=== PATIENT | male | born 1970 | race Caucasian/White ===

== ENCOUNTER 2019-12-23 08:46 | Outpatient (CLI) | payer MEDICARE, MEDICAID, SELFPAY ==
--- NOTE | ~2019-12-23 | CT_ITS ---
EXAMINATION: CT abdomen pelvis w con DATE: 12/23/2019 09:33 INDICATION: Abdominal pain. Paraplegia. TECHNIQUE: Computed tomography (CT) of the abdomen and pelvis was performed with 100 cc Omnipaque 350 intravenous contrast. Automated exposure control and iterative reconstruction technique were employe d. Exam dose: 626.44 mGy-cm total exam DLP. COMPARISON: 03/13/2017 limited abdominal ultrasound 09/19/2016 CT abdomen pelvis FINDINGS: Prominent band of discoid atelectasis or scarring at the left lung base, left lower lobe. N o consolidation at the lung bases. No pericardial or pleural effusion. Diffuse hepatic steatosis. No hepatic, splenic, pancreatic, adrenal or renal space-occupying mass les ion is detected. The gallbladder is present. No gallbladder wall thickening or pericholecystic fluid or inflammation. No bile duct or pancreatic duct dilatation. No renal space occupying mass lesion. No urinary tract calculus or hydroureteronephrosis. There is diffuse bladder wall thickening. There is abdominal aortic calcification; no evidence of aneurysm. No intraperitoneal or retroperiton eal or pelvic mass lesion or lymphadenopathy. Normal appendix. No bowel wall thickening or bowel obstruction, pneumatosis or intraperitoneal free a ir. A battery pack along the subcutaneous tissues of the right anterior abdominal wall lead extending int o the lower thoracic spinal canal. Degenerative spurring throughout the thoracic and lumbar spine. IMPRESSION: Hepatic steatosis Normal appendix Reviewed, dictated and finalized at [facility]. Reviewed, dictated and finalized at [facility].
== END 2019-12-23 08:47 | disposition home or self-care (01) ==
LOC: ANHIMG 08:53
PROVIDERS: PCP Family Medicine; Visit Provider Family Medicine
DX: G82.20 Paraplegia, unspecified (principal); R10.9 Unspecified abdominal pain; K76.0 Fatty (change of) liver, not elsewhere classified
CPT/HCPCS: 74177; Q9967

== ENCOUNTER 2020-01-12 13:57 | Emergency (ER) | payer MEDICARE, MEDICAID, SELFPAY ==
[2020-01-12 14:03] VITALS: BP 245/100; PULSE 139; RESP 18; TEMP 36.8; O2SAT 99
[2020-01-12 14:31] LABS: Add Urine Microscopic? YES; Appearance Urine Clear (Clear); Bacteria Urine Trace /hpf; Bilirubin Urine Negative (Negative); Blood Urine Negative (Negative); Color Urine Yellow (Yellow); Glucose Urine UA Negative (Negative); Ketones Urine 1+ mg/dL (Negative); Leukocyte Esterase Ur 1+ LEU/UL (Negative); Nitrate Urine Negative (Negative); Protein Urine Negative (Negative); RBC Urine 0-2 /hpf (0-2); Specific Grav Ur 1.009 (1.001-1.035); Squamous Epithelial Cell Urine Rare /hpf (Few); Transitional Epi Cells Urine Rare /hpf (None Seen); Urobilinogen Urine Negative mg/dL (<2.0); WBC Urine 21-30 /hpf
[2020-01-12 15:36] VITALS: O2SAT 97
--- NOTE | 2020-01-12 15:46 | ECG_ITS ---
Measurements Intervals [place] Rate: 89 P: 74 MD: 119 QRS: 16 QRSD: 85 T: 58 QT: 346 QTc: 423 Interpretive Statements SINUS RHYTHM WITH SHORT MD INTERVAL BASELINE ARTIFACT- I, II, III, AVR, AVL, AVF, V1-V4, V6 BORDERLINE ECG Electronically Signed On 01-12-2020 18:53:12 PAPER CORE MACHINE OPERATOR by Alfred Ellsworth D.O.
[2020-01-12 16:00] VITALS: O2SAT 95
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
[2020-01-12 16:16] LABS: Basophils Absolute Auto 0.1 K/mm3 (0.0-0.1); Basophils Percent Auto 0.4 % (0.2-1.2); Eosinophils Percent Auto 0.3 % (0-4.4); Hematocrit 37.4 % (42.0-52.0); Hemoglobin 12.6 g/dL (14.0-18.0); Immature Granulocyte Absolute 0.05 K/mm3 (0.00-0.031); Immature Granulocyte Percent A 0.4 % (0-0.5); Lymphocytes Absolute Auto 1.57 K/mm3 (0.9-3.2); Lymphocytes Percent Auto 11.5 % (18.3-44.2); Mean Corpuscular HGB Conc 33.7 g/dl (32-36); Mean Corpuscular Hemoglobin 31.2 pg (26-34); Mean Corpuscular Volume 92.6 fl (80-100); Monocytes Absolute Auto 1.1 K/mm3 (0.1-0.6); Monocytes Percent Auto 8.2 % (2.6-8.5); Neutrophils Absolute Auto 10.8 K/mm3 (1.3-6.7); Neutrophils Percent Auto 79.2 % (45.5-73.1); Platelet Count Result 189 k/mm3 (150-375); Red Blood Count 4.04 M/mm3 (4.6-6.20); Red Cell Distribution Width 13.2 % (11.5-14.5); White Blood Count 13.6 K/mm3 (4.5-10.0)
[2020-01-12 16:22] VITALS: O2SAT 97
[2020-01-12 16:28] LABS: Alanine Aminotransferase 33 U/L (4-50); Albumin Level 4.3 g/dL (3.5-5.1); Alkaline Phosphatase 133 U/L (38-126); Anion Gap 7 mmol/L (8-16); Aspartate Amino Transferase 41 U/L (17-59); Bilirubin,Total 0.8 mg/dL (0.2-1.3); Blood Urea Nitrogen 14 mg/dL (9-20); Calcium 9.6 mg/dL (8.4-10.2); Carbon Dioxide 29 mmol/L (22-30); Chloride 104 mmol/L (98-107); Estimated CRCL calculation 114 ml/min; Estimated Glomerular Filt Rate > 60; Glucose 88 mg/dL (75-110); Potassium 4.2 mmol/L (3.4-5.0); Sodium 140 mmol/L (137-145)
[2020-01-12 17:46] VITALS: BP 123/79; PULSE 89; RESP 16; O2SAT 100
--- NOTE | 2020-01-12 17:54 | PC.NURSE ---
WILBUR RAMEY INFORMED THAT PT RESULTS ARE BACK, GIVEN UPDATED VS, AND INFORMED THAT PT IS AWAITING HIM TO COME DOWN AND TALK ABOUT HIS RESULTS.
[2020-01-12 18:23] VITALS: BP 123/79; PULSE 82; RESP 17; O2SAT 98
== END 2020-01-12 18:24 | disposition home or self-care (01) ==
PROVIDERS: Emergency Provider Emergency Medicine; PCP Family Medicine
DX: M62.830 Muscle spasm of back (principal); N39.0 Urinary tract infection, site not specified; K21.9 Gastro-esophageal reflux disease without esophagitis; N31.9 Neuromuscular dysfunction of bladder, unspecified; S14.159S Other incomplete lesion at unspecified level of cervical spinal cord, sequela; V49.9XXS Car occupant (driver) (passenger) injured in unspecified traffic accident, sequela; R94.31 Abnormal electrocardiogram [ECG] [EKG]
CPT/HCPCS: 36415; 80053; 81001; 85025; 87086; 93005; 99283

== ENCOUNTER 2020-01-30 00:39 | Outpatient (CLI) | payer MEDICARE, MEDICAID, SELFPAY ==
[2020-01-30 19:13] LABS: SARS-CoV-2 RNA PCR Negative
== END 2020-01-30 00:40 | disposition home or self-care (01) ==
LOC: ANHCOVIDDT 00:39
PROVIDERS: PCP Family Medicine; Visit Provider Plastic Surgery
DX: Z01.818 Encounter for other preprocedural examination (principal); Z20.828 Contact with and (suspected) exposure to other viral communicable diseases
CPT/HCPCS: 87635; C9803; U0003

== ENCOUNTER 2020-02-03 01:13 | Day surgery (SDC) | payer MEDICARE, MEDICAID, SELFPAY ==
[2020-01-26 15:46] VITALS: BMI 22.1
--- NOTE | 2020-02-02 12:41 | WPDANESEPPF ---
Anes - Initial Pre Proc Eval Procedure: Operation Date: 02/03/20 12:15 Proposed Procedures p Incision and Drainage Perineal Sinus Tract - Demarcus Gonzales MD Date/Time: 02/02/20 12:41 Surgeon: Demarcus Gonzales MD Pre Op Diagnosis: Abscess Of Perineal Sinus Tract Patient Data Age: 49 Gender: M Height: 1.83 m Weight: 73.94 kg Allergies Allergy/AdvReac Type Severity Reaction Status Date / Time No Known Allergies Allergy Verified 01/26/20 15:41 Home Medications Medication Instructions Recorded Confirmed Type baclofen 50 mcg/mL (1 mL) 50 mcg I-THECAL DAILY 01/05/19 01/26/20 History intrathecal syringe ibuprofen 600 mg tablet 600 mg PO TID PRN #90 tablet 12/01/19 01/26/20 Rx nitrofurantoin monohyd/m-cryst 100 mg PO Q12H 5 Days #10 cap 01/12/20 01/26/20 Rx [Macrobid] pregabalin 200 mg capsule 200 mg PO BID #60 cap 01/17/20 01/26/20 Rx duloxetine 60 mg PO DAILY 01/26/20 01/26/20 History tolterodine 4 mg PO HS 01/26/20 01/26/20 History Patient hx anesthesia problems: none Family hx anesthesia problems: none PMFSH Past Medical History Medical History (Updated 02/02/20 @ 12:43 by Moisés Fam MD) Colon cancer screening negative cologuard Gastroesophageal reflux disease without esophagitis Neurogenic dysfunction of the urinary bladder Paraplegia following spinal cord injury C6 lesion Family History Family History Sibling Family history of cardiovascular disease Patient's brother is in good health Mother Cerebrovascular accident Family history of development disorder Patient's mother is in good health Father Patient's father is in good health Other Family history of malignant neoplasm Social History Social History Smoking status: Never smoker Second hand tobacco smoke exposure: No Alcohol intake: never Substance use: never Living arrangements: other Spiritual care concerns: No Anes - Eval Final PreProcedure Day of Procedure 02/02/20 12:41 Patient weight: normal Heart: regular rate and rhythm Lungs: clear to auscultation and normal air movement Airway: Mallampati scale class II Neurological: alert and oriented Last oral intake: >/= 8 hours ASA classification: III Emergent: no Anesthetic plan: proceed Anesthesia type and monitoring: general GIVS Informed Consent: The patient's anesthetic plan and its attendant risks and benefits were discussed with the patient/family/POA. Questions were solicited and answers provided to the satisfaction of the patient/family/POA.
--- NOTE | 2020-02-03 07:17 | WPDHPUPDATE1 ---
History and Physical Update Update Date/Time: 02/03/20 07:17 History and Physical has been reviewed, including an updated exam of the patient. There are NO changes in the patient's condition. Risks, benefits, and alternatives have been discussed and questions answered. Patient agrees to proceed with procedure.
[2020-02-03 13:22] VITALS: BP 120/71; PULSE 61; RESP 20; TEMP 36.2; O2SAT 98
[2020-02-03] MEDS: LACTATED RINGERS 1,000 ML 30 ML IV CONT (13:24)
[2020-02-03] MEDS: BACITRACIN OINTMENT 15 GM TUBE 1 APPLIC TOPICAL (15:29)
[2020-02-03] MEDS: LIDO 1%/EPINEPHRINE 1:100,000 20 ML VIAL 5 ML INFILTRATE (15:29)
[2020-02-03 16:05] VITALS: BP 86/57; PULSE 71; RESP 16; TEMP 36.4; O2SAT 100
--- NOTE | 2020-02-03 16:24 | PM.OP ---
Procedure Note - Brief Procedure Note - Brief Date of procedure: 02/04/20 Pre-op diagnosis: Abscess Of Perineal Sinus Tract Post-op diagnosis: same Procedure performed: Excision of two subcutaneous draining tracts. Simple closure total 8 cm. Anesthesia: GETA Surgeon: Demarcus Gonzales MD Drains: No Packing: No Pathology: none sent Complications: No immediate complications Condition: stable Disposition: PACU Findings: Cystic structures without pus.
--- NOTE | 2020-02-03 16:27 | PM.PROC ---
Procedure Note - Detailed Date of procedure: 02/04/20 Pre-op diagnosis: Abscess Of Perineal Sinus Tract Post-op diagnosis: same Procedure performed: The perineal site was marked on the patient while in the holding area. He was then taken to the operating room and placed supine on the operating table. He was given general endotracheal anesthesia and repositioned to the lithotomy position. The perineal region was prepped and draped in usual fashion. There was no erythema present and there is no obvious drainage today. We were able to identify a 1/2 mm sinus tract and probed that very gently with a lacrimal probe. This extended to exit from another point approximately 3 cm away. Was a small amount of material in that track that I believed to be sebum. This area was infiltrated with 1% lidocaine with epinephrine. The trach was marsupialized over the probe. The epithelial lining was identified in a portion of this. The site was carefully cauterized. A 2nd trac was identified closer to the right thigh. This was also probed with the lacrimal probe. in this case the trach was closer to 5 cm and did not exit from another site. This was also marsupialized with cautery. In this case a 1 x 1.5 cm cystic structure was identified lined with epithelium and impacted with dry sebum. No pus was identified. The site was cauterized to obliterate the cystic wall. This area also had been infiltrated with 1% lidocaine with epinephrine. No additional tracts were identified. The 2 sites were oversewn was interrupted 4-0 chromic suture for a total closure of 8 cm. Antibiotic ointment and ABD pad and a promise panty was applied. The patient was extubated removed to his gurney and transported to the recovery room in stable condition. Surgeon: Demarcus Gonzales MD
[2020-02-03 16:35] VITALS: BP 132/67; PULSE 72; RESP 16
== END 2020-02-03 17:08 | disposition home or self-care (01) ==
PROVIDERS: PCP Family Medicine; Visit Provider Plastic Surgery
PROC: (CPT 10061; principal; 2020-02-03 13:15)
DX: L02.215 Cutaneous abscess of perineum (principal); K21.9 Gastro-esophageal reflux disease without esophagitis; G82.20 Paraplegia, unspecified; N31.9 Neuromuscular dysfunction of bladder, unspecified
CPT/HCPCS: 10061; A9270; J2250; J2405; J2704; J7120

== ENCOUNTER 2020-05-09 14:45 | Outpatient (CLI) | payer MEDICARE, MEDICAID, SELFPAY | END 2020-05-09 14:46 | disposition home or self-care (01) | LOC: ANHCOVIDVC 14:45 | PROVIDERS: PCP Family Medicine | DX: Z23 Encounter for immunization (principal) | CPT/HCPCS: 0001A; 91300 ==

== ENCOUNTER 2020-05-30 14:49 | Outpatient (CLI) | payer MEDICARE, MEDICAID, SELFPAY | END 2020-05-30 14:50 | disposition home or self-care (01) | LOC: ANHCOVIDVC 14:49 | PROVIDERS: PCP Family Medicine | DX: Z23 Encounter for immunization (principal) | CPT/HCPCS: 0002A; 91300 ==

== ENCOUNTER 2022-04-30 12:03 | Outpatient (CLI) | payer MEDICARE, MEDICAID, SELFPAY ==
--- NOTE | ~2022-04-30 | XR_ITS ---
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 RESULT: Lines, tubes, and devices: Catheter projects over the right chest. Lungs and pleura: Senescent change. Left basilar scar/atelectasis. Cardiomediastinal silhouette: Stable. Other: No acute osseous or upper abdominal finding. IMPRESSION: No acute cardiopulmonary process. Reviewed, dictated and finalized at [facility]. TORIAL CLEANER
== END 2022-04-30 12:04 | disposition home or self-care (01) ==
PROVIDERS: PCP Family Medicine; Visit Provider Family Medicine
DX: R05.9 Cough, unspecified (principal)
CPT/HCPCS: 71046

== ENCOUNTER 2022-09-03 12:19 | Outpatient (CLI) | payer MEDICARE, MEDICAID, SELFPAY ==
--- NOTE | ~2022-09-03 | XR_ITS ---
AP view of the pelvis and AP and lateral views of the left hip Clinical history: Pain Findings: No acute fracture or dislocation is seen. Suggestion of chronic dysplasia of the left aceta bulum/hip. Probable mild degenerative change of both hips. Soft tissues are unremarkable. Impression: No acute fracture or dislocation. 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 Mild degenerative change. Reviewed, dictated and finalized at location . Impression: No acute fracture or dislocation. 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 Mild degenerative change.
== END 2022-09-03 12:20 | disposition home or self-care (01) ==
PROVIDERS: PCP Family Medicine; Visit Provider Family Medicine
DX: M25.552 Pain in left hip (principal)
CPT/HCPCS: 73502

== ENCOUNTER 2023-02-12 08:01 | Outpatient (CLI) | payer MEDICARE, MEDICAID, SELFPAY ==
--- NOTE | ~2023-02-12 | CT_ITS ---
CT of the Abdomen and Pelvis: Indication: Abdominal pain Technique: 2.5 mm axial scans were obtained through the abdomen and pelvis following intravenous adm inistration of 100 cc of Omnipaque 350. Dose reduction technique was used on this scan by utilizing a utomated exposure control and iterative reconstruction technique. The dose-length product (DLP) was 4 07.90 mGy-cm. COMPARISON: 12/23/2019 Findings: Scans through the lung bases are unremarkable. The liver, spleen, pancreas, gallbladder, adrenals and kidneys are within normal limits. There are at herosclerotic calcifications of the aorta. No lymphadenopathy. No bowel obstruction or bowel wall thickening. There is no evidence to suggest acute appendicitis. Images through the pelvis were performed. Urinary bladder wall thickening versus underdistention. No pelvic mass evident. No ascites. Impression: Possible cystitis versus underdistended urinary bladder. Correlate with urinalysis. Reviewed, dictated and finalized at [facility]. 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 Correlate with urinaly sis.
== END 2023-02-12 08:02 | disposition home or self-care (01) ==
LOC: ANHIMG 08:02
PROVIDERS: PCP Family Medicine; Visit Provider Physician Assistant
DX: R10.9 Unspecified abdominal pain (principal); R63.4 Abnormal weight loss
CPT/HCPCS: 74177; Q9967

== ENCOUNTER 2024-03-06 01:24 | Day surgery (SDC) | payer MEDICARE, MEDICAID, SELFPAY ==
[2024-02-17 13:21] VITALS: BMI 22.4
[2024-03-06 12:09] VITALS: BP 165/93; PULSE 92; RESP 18; TEMP 36.3; O2SAT 98
[2024-03-06] MEDS: LACTATED RINGERS 1,000 ML 150 ML IV CONT (12:21)
--- NOTE | 2024-03-06 12:53 | P.PNAN_ITS ---
Anes - Initial Pre Proc Eval Procedure: Operation Date: 03/06/24 13:30 Proposed Procedures p Colonoscopy - Rayray Kaufman MD Date/Time: 03/06/24 12:53 Surgeon: Rayray Kaufman MD Pre Op Diagnosis: fecal abnormalities Patient Data Age: 54 Gender: M Height: 1.83 m Weight: 74.5 kg Last Vital Signs Temp 97.3 F L 03/06/24 12:09 Pulse 92 03/06/24 12:09 Resp 18 03/06/24 12:09 BP 165/93 H 03/06/24 12:09 Pulse Ox 98 03/06/24 12:09 O2 Del Method Room Air 03/06/24 12:09 Allergies Allergy/AdvReac Type Severity Reaction Status Date / Time adhesive tape Allergy Rash Verified 02/17/24 13:15 sulfamethoxazole (From AdvReac Intermediate Nausea and Verified 02/17/24 13:15 Bactrim) Vomiting trimethoprim (From Bactrim) AdvReac Intermediate Nausea and Verified 02/17/24 13:15 Vomiting Home Medications ?Medication ?Instructions ?Recorded ?Confirmed ?Type baclofen 50 mcg/mL (1 mL) 50 mcg intrathecal DAILY 01/05/19 02/17/24 History intrathecal syringe (Gablofen) nystatin 100,000 unit/gram topical 1 applic topical BID #60 grams 06/28/22 03/06/24 Rx powder fluticasone propionate 50 See Rx Instructions .Route 04/30/23 02/17/24 Rx mcg/actuation nasal .COMPLEX #16 mL spray,suspension baclofen 20 mg tablet 20 mg PO QID #60 tabs 09/10/23 02/17/24 Rx pregabalin 200 mg capsule (Lyrica) 200 mg PO TID #60 caps 09/10/23 03/06/24 Rx sertraline 50 mg tablet 50 mg PO DAILY #90 tabs 11/25/23 03/06/24 Rx hydrocodone 10 mg-acetaminophen 1 tablet PO Q6H PRN pain #60 tabs 11/27/23 02/17/24 Rx 325 mg tablet tolterodine 4 mg capsule,extended 4 mg PO HS #90 caps 02/23/24 03/06/24 Rx release 24 hr rosuvastatin 5 mg tablet See Rx Instructions .Route 02/24/24 03/06/24 Rx .COMPLEX #90 tabs ibuprofen 600 mg tablet 600 mg PO TID PRN pain #90 tabs 03/05/24 03/06/24 Rx clonidine HCl 0.2 mg tablet 0.2 mg PO DAILY 03/06/24 03/06/24 History Patient hx anesthesia problems: none Family hx anesthesia problems: none Results Review: All pre-operative results and documents have been reviewed as part of the pre- operative evaluation. [facility] Past Medical History Medical History Acute low back pain without sciatica Allergic rhinitis Anemia At high risk for autonomic dysreflexia Autonomic dysreflexia Borderline hypothyroidism Bursitis of left elbow Cellulitis of right lower extremity Colon cancer screening negative cologuard Constipation Cough Current mild episode of major depressive disorder Cystitis Dizziness Edema of right lower extremity Encounter for screening for malignant neoplasm of prostate Esophageal reflux Excessive cerumen in right ear canal Foul smelling urine Gastroesophageal reflux disease without esophagitis Generalized abdominal pain Lower resp. tract infection Mixed hyperlipidemia Neurogenic dysfunction of the urinary bladder Other chronic pain Paraplegia following spinal cord injury C6 lesion Paraplegia following spinal cord injury Proteinuria Quadriplegia following spinal cord injury Quadriplegia, C5-C7 complete Recurrent UTI Right upper quadrant abdominal pain Strain of right trapezius muscle Toe infection Urinary symptom or sign Vitamin D deficiency Family History Family History Sibling Family history of cardiovascular disease Mother Cerebrovascular accident Family history of development disorder Father No problems noted. Sibling Cancer of appendix Cancer of stomach Other Family history of malignant neoplasm Social History Social History Smoking status: Current every day smoker Second hand tobacco smoke exposure: No Alcohol intake: never Substance use: current Substance use type: marijuana Other substance usage details: smokes marijuana Last use: 02/17/2024 Lack of Transportation: No Lack of Food: Never True Current Housing: I Have Housing Concerned About Future Housing: No Difficulty Paying Gas/Electric Bills: No Difficulty Paying for Meds: No Currently Unemployed: No Education: High School Diploma/GED Difficulty w/ Childcare or Family Care: No Living arrangements: alone Occupation/Education: unemployed Gender identity (if verbalized by the patient): Male Sexual Orientation (if Verbalized by the Patient): Straight or Heterosexual Spiritual care concerns: No Agree to blood products: Yes Anes - Eval Final PreProcedure Day of Procedure 03/06/24 12:53 Patient weight: normal Heart: regular rate and rhythm Lungs: clear to auscultation Airway: Mallampati scale class II Neurological: alert and oriented Last oral intake: >/= 8 hours ASA classification: IV Emergent: no Anesthetic plan: proceed Anesthesia type and monitoring: general GIVS and standard monitoring Results Review: All pre-operative results and documents have been reviewed as part of the pre- operative evaluation. Informed Consent: The patient's anesthetic plan and its attendant risks and benefits were discussed with the patient/family/POA. Questions were solicited and answers provided to the satisfaction of the patient/family/POA.
--- NOTE | 2024-03-06 12:53 | P.HP_ITS ---
History of Present Illness History of Present Illness Consent: Risks, benefits, and alternatives have been discussed and questions answered. Patient agrees to proceed with procedure. 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 tract infection Generalized abdominal pain Foul smelling urine Excessive cerumen in right ear canal Esophageal reflux Edema of right lower extremity Dizziness Cystitis Current mild episode of major depressive disorder Cough Constipation Cellulitis of right lower extremity Bursitis of left elbow Allergic rhinitis Acute low back pain without sciatica Borderline hypothyroidism Anemia Encounter for screening for malignant neoplasm of prostate Mixed hyperlipidemia Vitamin D deficiency Urinary symptom or sign Colon cancer screening negative cologuard Gastroesophageal reflux disease without esophagitis Neurogenic dysfunction of the urinary bladder Paraplegia following spinal cord injury C6 lesion Family History Family History Sibling Family history of cardiovascular disease Mother Cerebrovascular accident Family history of development disorder Father No problems noted. Sibling Cancer of appendix Cancer of stomach Other Family history of malignant neoplasm Social History Social History Smoking status: Current every day smoker Second hand tobacco smoke exposure: No Alcohol intake: never Substance use: current Substance use type: marijuana Other substance usage details: smokes marijuana Last use: 02/17/2024 Lack of Transportation: No Lack of Food: Never True Current Housing: I Have Housing Concerned About Future Housing: No Difficulty Paying Gas/Electric Bills: No Difficulty Paying for Meds: No Currently Unemployed: No Education: High School Diploma/GED Difficulty w/ Childcare or Family Care: No Living arrangements: alone Occupation/Education: unemployed Gender identity (if verbalized by the patient): Male Sexual Orientation (if Verbalized by the Patient): Straight or Heterosexual Spiritual care concerns: No Agree to blood products: Yes Meds Home Medications and Allergies Home Medications ?Medication ?Instructions ?Recorded ?Confirmed ?Type baclofen 50 mcg/mL (1 mL) 50 mcg intrathecal DAILY 01/05/19 02/17/24 History intrathecal syringe (Gablofen) nystatin 100,000 unit/gram topical 1 applic topical BID #60 grams 06/28/22 03/06/24 Rx powder fluticasone propionate 50 See Rx Instructions .Route 04/30/23 02/17/24 Rx mcg/actuation nasal .COMPLEX #16 mL spray,suspension baclofen 20 mg tablet 20 mg PO QID #60 tabs 09/10/23 02/17/24 Rx pregabalin 200 mg capsule (Lyrica) 200 mg PO TID #60 caps 09/10/23 03/06/24 Rx sertraline 50 mg tablet 50 mg PO DAILY #90 tabs 11/25/23 03/06/24 Rx hydrocodone 10 mg-acetaminophen 1 tablet PO Q6H PRN pain #60 tabs 11/27/23 1 04/19/23 Rx 325 mg tablet tolterodine 4 mg capsule,extended 4 mg PO HS #90 caps 02/23/24 03/06/24 Rx release 24 hr rosuvastatin 5 mg tablet See Rx Instructions .Route 02/24/24 03/06/24 Rx .COMPLEX #90 tabs ibuprofen 600 mg tablet 600 mg PO TID PRN pain #90 tabs 03/05/24 03/06/24 Rx clonidine HCl 0.2 mg tablet 0.2 mg PO DAILY 03/06/24 03/06/24 History Allergies Allergy/AdvReac Type Severity Reaction Status Date / Time adhesive tape Allergy Rash Verified 02/17/24 13:15 sulfamethoxazole (From AdvReac Intermediate Nausea and Verified 02/17/24 13:15 Bactrim) Vomiting trimethoprim (From Bactrim) AdvReac Intermediate Nausea and Verified 02/17/24 13:15 Vomiting Vital Signs Vital Signs - 24 hr 03/06/24 12:09 Temperature 97.3 F L Pulse Rate 92 Respiratory Rate 18 Blood Pressure 165/93 H Pulse Oximetry 98 Oxygen Delivery Room Air Exam Narrative: uses wheelchair Const: General: comfortable and no acute distress HENMT: Face/Nose/Sinus: Normal nares present Eyes: General: appearance normal, both eyes and all related structures Neck: Neck: no JVD Resp: Auscultation: clear to auscultation bilaterally Cardio: Rate: regular rate Rhythm: regular rhythm GI: Inspection: non-distended GI Palp: Yes Soft to palpation Skin: General skin exam: normal color Neuro: Speech: normal speech Psych: Mental Status: mental status grossly normal Assessment and Plan Assessment and plan (1) Positive colorectal cancer screening using Cologuard test: Code(s): R19.5 - Other fecal abnormalities Status: Acute Assessment and Plan: colonoscopy
[2024-03-06 13:14] VITALS: BP 78/48; PULSE 61; RESP 18; O2SAT 98
[2024-03-06 13:24] VITALS: BP 76/30; PULSE 61; RESP 22; O2SAT 99
[2024-03-06 13:34] VITALS: BP 92/58; PULSE 60; RESP 22; O2SAT 99
== END 2024-03-06 13:53 | disposition home or self-care (01) ==
PROVIDERS: PCP Family Medicine; Referring Provider Student in an Organized Health Care Education/Training Program; Visit Provider Internal Medicine Gastroenterology
PROC: 0DJD8ZZ Inspection of Lower Intestinal Tract, Via Natural or Artificial Opening Endoscopic (ICD-10-PCS; CPT 45378; principal; 2024-03-06 13:30)
DX: D12.3 Benign neoplasm of transverse colon (principal); K64.8 Other hemorrhoids; E03.9 Hypothyroidism, unspecified; D64.9 Anemia, unspecified; E78.2 Mixed hyperlipidemia; E55.9 Vitamin D deficiency, unspecified; K21.9 Gastro-esophageal reflux disease without esophagitis; G90.4 Autonomic dysreflexia; G82.53 Quadriplegia, C5-C7 complete; G89.29 Other chronic pain; N31.9 Neuromuscular dysfunction of bladder, unspecified; F17.210 Nicotine dependence, cigarettes, uncomplicated; F12.90 Cannabis use, unspecified, uncomplicated; Z79.891 Long term (current) use of opiate analgesic; Z79.1 Long term (current) use of non-steroidal anti-inflammatories (NSAID); Z80.0 Family history of malignant neoplasm of digestive organs; Z82.49 Family history of ischemic heart disease and other diseases of the circulatory system
CPT/HCPCS: 45385; 88305; J2704; J7120

== ENCOUNTER 2024-11-09 12:36 | Outpatient (CLI) | payer MEDICARE, MEDICAID, SELFPAY ==
--- NOTE | ~2024-11-09 | XR_ITS ---
Examination: XR chest 2V Clinical History: R06.02 - Shortness of breath Comparison: 04/30/2022 Technique: PA and Lateral Findings: Cardiomediastinal silhouette normal size and configuration. Lungs clear. Hyperinflation. No acute bony abnormality. Mild scoliosis. IMPRESSION: 1. No acute cardiopulmonary findings. Reviewed, dictated and finalized at location [facility].
== END 2024-11-09 12:37 | disposition home or self-care (01) ==
PROVIDERS: PCP Family Medicine
DX: R06.02 Shortness of breath (principal)
CPT/HCPCS: 71046